=== PATIENT | female | born 1975 | race African-American/Black ===

== ENCOUNTER → 2017-05-10 | Outpatient (CLI) | payer OTHER ==
[~2017-05-10] MED LIST: FLEXERIL PO; IBUPROFEN PO; NORVASC PO
--- NOTE | ~2017-05-10 | CR20 ---
[facility] A Service of [facility] & [facility] RADIOLOGY TEXT RESULTS PATIENT: REGAN COTO LOCATION: [facility] : 73 UNIT #: [id number] AGE: [address]: BELA ALEXANDER SEX: F ORDER DR: [id number] [facility] [address] [place], [place] [address] [id number] O MR#: [id number] Acc #: [id number] NAME: REGAN COTO : 1975 SEX: F STUDY DATE/TIME: 05/10/2017 10:00 UNIT: [facility] ROOM: STUDY DESCRIPTION: CR Ankle Min 3 Views Lt Attending Physician: Bela Alexander Aprn Referring Physician: Bela Alexander Aprn Ordering Physician: Bela Alexander Aprn Primary Care Physician: [facility] MEDICAL IMAGING REPORT This report is preliminary unless electronic signature is present EXAM Left ankle, 3 views, 05/10/2017. HISTORY Left ankle pain for 4 days status post fall. FINDINGS Three views of the left ankle demonstrate no fracture. 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 The bones are normally mineralized. There is no joint effusion. IMPRESSION No acute abnormality left ankle. Dictated by... Darrick Arzola M.D. THIS IS AN ELECTRONICALLY VERIFIED REPORT Darrick Arzola M.D. at 05/11/2017 7:46 AM KADE/nadrea TD: 05/10/2017 12:41 JOB #: [id number] MEDICAL IMAGING REPORT Page 1 of 1 COPY
--- NOTE | ~2017-05-10 | CR169 ---
[facility] A Service of [facility] & [facility] RADIOLOGY TEXT RESULTS PATIENT: REGAN COTO LOCATION: [facility] : 73 UNIT #: [id number] AGE: [address]: BELA ALEXANDER SEX: F ORDER DR: [id number] [facility] [address] [place], [place] [address] [id number] O MR#: [id number] Acc #: [id number] NAME: REGAN COTO : 1975 SEX: F STUDY DATE/TIME: 05/10/2017 10:01 UNIT: [facility] ROOM: STUDY DESCRIPTION: CR Knee 2 Views Lt Attending Physician: Bela Alexander Aprn Referring Physician: Bela Alexander Aprn Ordering Physician: Bela Alexander Aprn Primary Care Physician: [facility] MEDICAL IMAGING REPORT This report is preliminary unless electronic signature is present EXAM Left knee 2 views, 05/10/2017 HISTORY Left knee pain for 4 days status post fall onto left knee. FINDINGS AP and lateral projection of the knee shows smooth articular anatomy without indication of fracture or dislocation at the major weight-bearing surface of the knee. There is no indication of radiopaque foreign body about the knee surface or joint effusion. IMPRESSION Normal knee. Dictated by... Darrick Arzola M.D. THIS IS AN ELECTRONICALLY VERIFIED REPORT Darrick Arzola M.D. at 05/11/2017 7:46 AM KADE/marielos TD: 05/10/2017 12:48 JOB #: [id number] MEDICAL IMAGING REPORT Page 1 of 1 COPY
--- NOTE | ~2017-05-10 | CR126 ---
[facility] A Service of [facility] RADIOLOGY TEXT RESULTS PATIENT: REGAN COTO LOCATION: [facility] : 73 UNIT #: [id number] AGE: [address]: BELA ALEXANDER SEX: F ORDER DR: [id number] [facility] [address] [place], [place] [address] [id number] O MR#: [id number] Acc #: [id number] NAME: REGAN COTO : 1975 SEX: F STUDY DATE/TIME: 05/10/2017 9:59 UNIT: [facility] ROOM: STUDY DESCRIPTION: CR Foot Complete Min 3 View Lt Attending Physician: Bela Alexander Aprn Referring Physician: Bela Alexander Aprn Ordering Physician: Bela Alexander Aprn Primary Care Physician: [facility] MEDICAL IMAGING REPORT This report is preliminary unless electronic signature is present EXAM Left foot 3 views 05/10/2017 HISTORY Left foot pain for 4 days status post fall. FINDINGS The tarsal, metatarsal, and phalangeal elements are all anatomically normal in position and alignment. There are no articular defects. No fractures or radiopaque foreign bodies in the soft tissues are apparent. IMPRESSION Normal foot. Dictated by... Darrick Arzola M.D. THIS IS AN ELECTRONICALLY VERIFIED REPORT Darrick Arzola M.D. at 05/11/2017 7:46 AM KADE/linda TD: 05/10/2017 12:49 JOB #: [id number] MEDICAL IMAGING REPORT Page 1 of 1 COPY
== END | disposition home or self-care (01) ==
LOC: CRAD 09:36
DX: M25.562 Pain in left knee (principal); M25.572 Pain in left ankle and joints of left foot; M79.672 Pain in left foot
CPT/HCPCS: 73560; 73610; 73630